=== PATIENT | male | born 1960 | race Caucasian/White ===

== ENCOUNTER 2019-05-26 21:06 | Emergency (ER) | payer OTHER, SELFPAY ==
[2019-05-26 21:06] VITALS: BP 173/89; PULSE 71; RESP 18; TEMP 36.1
[2019-05-26 21:07] VITALS: BP 173/89; PULSE 71; RESP 18; TEMP 36.1; BMI 35.7
[2019-05-26] MEDS: proMETHazine 25 MG/ML Syringe 6.25 MG IV (21:33)
[2019-05-26] MEDS: 0.9% Normal Saline 1,000 ML 1000 ML IV (21:33)
[2019-05-26 21:39] LABS: Absolute Lymphocyte Count 2.15 X10^3/uL (0.83-4.51); Absolute Neutrophil Count 3.4 X10^3/uL (2.0-7.7); Basophil# 0.03 X10^3/uL; Basophil% 0.5 % (0-1); Eosinophil# 0.33 X10^3/uL; Eosinophils% 5.1 % (0-5); Hematocrit 43.9 % (40-54); Hemoglobin 14.6 g/dL (13.0-16.5); Lymphocyte # 2.15 X10^3/ul (4.0); Mean Corp Hgb Conc 33.3 g/dL (32-36); Mean Corpuscular Hgb 30.6 pg (27.0-32.0); Mean Platelet Vol. 9.7 fl (6.2-12.0); Monocyte# 0.59 X10^3/uL; NRBC Flagged by Analyzer 0 % (0-5); Neutrophil % 52.1 % (47-70); Platelet Count 255 K/mm3 (150-450); RBC Distribution Width CV 12.3 % (11.6-14.6); RBC Distribution Width SD 41.2 fl (35.1-43.9); Red Blood Count 4.77 M/mm3 (4.6-6.2); White Blood Count 6.5 K/mm3 (4.4-11.0)
[2019-05-26 21:56] LABS: AST(SGOT) 28 U/L (15-37); Alanine Aminotransfer ALT/SGPT 34 U/L (16-61); Albumin, Serum 3.9 g/dL (3.2-5.0); Alkaline Phosphatase 90 U/L (45-117); Anion Gap 8 (5-15); BUN 18 mg/dL (7-18); BUN/Creat Ratio 14.1 RATIO (10-20); Calcium,Total 8.5 mg/dL (8.5-10.1); Chloride 111 mmol/L (98-107); Creatinine, Serum 1.28 mg/dL (0.70-1.30); EST Glomerular Filtration Rate 61 mL/min (>60); Est Glom Filt Rate - Afr Amer 74 mL/min (>60); Estimated Creatinine Clearance 66.18 ml/min; Globulin 3.9 g/dL (2.2-4.2); Glucose 89 mg/dL (74-106); Lipase 149 U/L (73-393); Potassium 3.3 mmol/L (3.5-5.1); Protein, Total 7.8 g/dL (6.4-8.2); Sodium Level 143 mmol/L (136-145)
--- NOTE | 2019-05-26 22:31 | ED.DEP ---
ED Disposition - Plan for ED Patient: Instructions: VOMITING (5y-Adult) Prescriptions: Famotidine [Pepcid] 20 mg PO BID #28 tablet Ondansetron [Zofran Odt] 4 mg PO Q8H PRN PRN #10 tablet PRN Reason: Nausea Referrals: Mina Hinton MD [Primary Care Provider] -
--- NOTE | 2019-05-26 22:35 | ED.VISSUMM ---
- ER Visit Summary Date of Service: 05/26/19 Chief Complaint: Vomiting History of Present Illness: The patient is a 58 M presenting with vomiting. Patient states this has been ongoing for the past 3 weeks. He states that he initially had increasing belching and burping. Tonight he began having vomiting and was unable to keep anything down. He denies diarrhea or constipation. Denies abdominal pain. Denies chest pain or shortness of breath. Denies fever. Denies other complaints. Physical Examination: Vitals are stable. Patient is afebrile. Alert no acute distress. HEENT exam is unremarkable. Neck is supple. Lungs are clear and equal bilaterally. Heart is regular rate and rhythm. Abdomen is soft nontender nondistended. No guarding or rebound Extremities are unremarkable. Skin is warm and dry. No focal neurologic deficit. Remainder of exam is unremarkable. Emergency Department Course and Treatment: Patient was given IV fluids, Zofran. CBC, chemistries unremarkable other than potassium 3.3. Liver lipase are normal. On reevaluation patient's symptoms have completely resolved. He is able to tolerate p.o. in the emergency department. His abdomen is soft and nontender. He is advised to follow-up with his primary care physician. He is given prescription for Pepcid and Zofran. Advised return to ED for worsening complaints. Disposition: Discharge home Impression: Vomiting, resolved This note was generated with [employer] dictation software. It may contain incorrect words, spelling, and punctuation that were not noted in review of the chart prior to signing ED Disposition - Plan for ED Patient: Instructions: VOMITING (5y-Adult) Prescriptions: Famotidine [Pepcid] 20 mg PO BID #28 tab Prescription Printed Ondansetron [Zofran Odt] 4 mg PO Q8H PRN PRN #10 tab PRN Reason: Nausea Prescription Printed Referrals: Mina Hinton MD [Primary Care Provider] -
[2019-05-26 22:45] VITALS: BP 145/82; PULSE 83; RESP 16; O2SAT 97
== END 2019-05-26 22:45 | disposition home or self-care (01) ==
LOC: ED 21:47
PROVIDERS: Emergency Provider Emergency Medicine; PCP Family Medicine
DX: R11.10 Vomiting, unspecified (principal); I10 Essential (primary) hypertension
CPT/HCPCS: 80053; 83690; 85025; 96361; 96374; 99283; J7030